=== PATIENT | male | born 1970 | race Caucasian/White ===

== ENCOUNTER 2020-02-15 09:15 | Emergency (ER) | payer BC, OTHER ==
[~2020-02-15] VITALS: Ht 177.8 cm; Wt 68.9 kg
[~2020-02-15 09:15] MED LIST: BUPR-96 PO; ESCI5TAB PO; METH4TAB21 PO
[2020-02-15] MEDS ORDERED: SULFAMETH/TRIMETH 800/160 MG TABLET PO ONE (09:30)
[2020-02-15] MEDS ORDERED: CEphaleXIN 500 MG CAPSULE PO ONE (09:30)
[2020-02-15] MEDS ORDERED: CEphaleXIN 500 MG CAPSULE ONE (09:38)
[2020-02-15] MEDS ORDERED: SULFAMETH/TRIMETH 800/160 MG TABLET ONE (09:45)
--- NOTE | 2020-02-15 11:10 | NUR ---
Patient discharged to home in stable condition. Written and verbal after care instructions given. Patient verbalizes understanding of instructions. Stressed follow up or return to ER for worsening s/s.pt walks in steady gait.
== END 2020-02-15 11:10 | disposition home or self-care (01) ==
LOC: ER 09:15
DX: L03.116 Cellulitis of left lower limb (principal); Z90.81 Acquired absence of spleen; Z86.14 Personal history of Methicillin resistant Staphylococcus aureus infection
CPT/HCPCS: A4663

== ENCOUNTER 2020-02-25 06:17 | Emergency (ER) | payer OTHER ==
[~2020-02-25] VITALS: Ht 177.8 cm; Wt 72.6 kg
--- NOTE | 2020-02-25 06:36 | NUR ---
Dr. Schmidt at bedside for MSE.
[2020-02-25] MEDS ORDERED: IBUPROFEN 600 MG TABLET PO ONE (06:45)
[2020-02-25] MEDS ORDERED: IBUPROFEN 600 MG TABLET ONE (06:46)
--- NOTE | 2020-02-25 06:49 | NUR ---
Patient discharged to home in stable condition. Written and verbal after care instructions given. Patient verbalizes understanding of instructions. Stressed follow up or return to ER for worsening s/s. Patient ambulated out of ER with steady gait, no acute signs of distress, VSS, all belongings taken.
[2020-02-25 06:50] VITALS: BP 112/77
== END 2020-02-25 06:52 | disposition home or self-care (01) ==
LOC: ER 06:18
DX: M25.462 Effusion, left knee (principal); Z90.81 Acquired absence of spleen; Z86.14 Personal history of Methicillin resistant Staphylococcus aureus infection
CPT/HCPCS: A4663

== ENCOUNTER 2020-09-01 17:49 | Emergency (ER) | payer OTHER ==
[~2020-09-01] VITALS: Ht 177.8 cm; Wt 72.6 kg
--- NOTE | 2020-09-01 18:09 | NUR ---
at bedside for assessment
[2020-09-01] MEDS ORDERED: CEPH500C2 PO (18:26)
[2020-09-01] MEDS ORDERED: LIDOCAINE HCL 2% 20 ML VIAL TP ONE (18:30)
--- NOTE | 2020-09-01 19:04 | NUR ---
right index finger dressed with xeroform and gauze
--- NOTE | 2020-09-01 19:23 | NUR ---
Patient eloped from facility. ER physician notified. Last seen 1919. Patient was awaiting xray results and discharge instructions.
== END 2020-09-01 19:26 | disposition home or self-care (01) ==
LOC: ER 17:51
DX: S61.210A Laceration without foreign body of right index finger without damage to nail, initial encounter (principal); W31.2XXA Contact with powered woodworking and forming machines, initial encounter; Y92.89 Other specified places as the place of occurrence of the external cause
CPT/HCPCS: 12002; 73140; 99283; J3490; A4217; A4663

== ENCOUNTER 2020-09-10 13:00 | Emergency (ER) | payer OTHER ==
[~2020-09-10] VITALS: Ht 177.8 cm; Wt 72.6 kg
[~2020-09-10 13:00] MED LIST changes: -BUPR-96 PO; +CEPH500C2 PO; -ESCI5TAB PO; -METH4TAB21 PO
--- NOTE | 2020-09-10 17:00 | NUR ---
cleaned wound with surgical scrub brush. Asst. STINSON w/suture removal, small patch of skin atop wound.
[2020-09-10] MEDS ORDERED: NEOMY/BACITRA/POLYMYXIN B OINT UD PACKET TP ONE (17:40)
[2020-09-10] MEDS ORDERED: AMOX-430 PO (17:40)
--- NOTE | 2020-09-10 17:47 | NUR ---
A/Bx ointment applied, finger dressed and bandaged. Pt given d/c instructions, verbalized understanding.
== END 2020-09-10 17:45 | disposition home or self-care (01) ==
LOC: ER 13:00
DX: S61.210D Laceration without foreign body of right index finger without damage to nail, subsequent encounter (principal); W31.2XXD Contact with powered woodworking and forming machines, subsequent encounter; T81.31XA Disruption of external operation (surgical) wound, not elsewhere classified, initial encounter; Z90.81 Acquired absence of spleen; Z86.14 Personal history of Methicillin resistant Staphylococcus aureus infection
CPT/HCPCS: A4663

== ENCOUNTER 2020-09-12 16:01 | Emergency (ER) | payer OTHER ==
[~2020-09-12] VITALS: Ht 177.8 cm; Wt 72.6 kg
[~2020-09-12 16:01] MED LIST changes: +AMOX-430 PO
[2020-09-12] MEDS ORDERED: NEOMY/BACITRA/POLYMYXIN B OINT UD PACKET TP ONE (16:33)
[2020-09-12] MEDS: NEOMY/BACITRA/POLYMYXIN B OINT UD PACKET TP ONE (16:36)
--- NOTE | 2020-09-12 16:36 | NUR ---
Patient was seen by . Abx ointment and clean dressing applied to finger. DC and follow up instruction given and explained to patient who states he understands all instructions
== END 2020-09-12 16:41 | disposition home or self-care (01) ==
LOC: ER 16:02
DX: S61.210D Laceration without foreign body of right index finger without damage to nail, subsequent encounter (principal); W45.8XXD Other foreign body or object entering through skin, subsequent encounter; Z86.14 Personal history of Methicillin resistant Staphylococcus aureus infection; Z90.81 Acquired absence of spleen
CPT/HCPCS: A4663

== ENCOUNTER 2022-05-17 14:30 | Emergency (ER) | payer OTHER ==
[~2022-05-17] VITALS: Ht 177.8 cm; Wt 70.3 kg
--- NOTE | 2022-05-17 14:30 | NUR ---
Pt came in with c/o laceration on the glabella, around 2cm d/t accidental bumping of his head. Denies blurry vision, headache, dizziness, n/v. Denies pain. Cleaned the wound. Seen by Dr. Pablo for MSE.
[2022-05-17] MEDS ORDERED: TDAP DIPH,PERTUSS,TET VAC/PF 0.5 ML DISP.SYRIN IM ONE ×2 (14:45→15:00)
[2022-05-17] MEDS ORDERED: NEOMY/BACITRA/POLYMYXIN B OINT UD PACKET TP ONE (14:45)
[2022-05-17] MEDS ORDERED: LIDOCAINE HCL 1% 20 ML VIAL IJ ONE (14:45)
--- NOTE | 2022-05-17 15:11 | NUR ---
Pt discharged to home in stable condition. Written and verbal after care instructions given. Pt verbalizes understanding of instructions. Stressed follow up or return to ER for worsening s/s.
== END 2022-05-17 15:05 | disposition home or self-care (01) ==
LOC: ER 14:30
DX: S01.81XA Laceration without foreign body of other part of head, initial encounter (principal); W22.09XA Striking against other stationary object, initial encounter; Y92.89 Other specified places as the place of occurrence of the external cause; D69.3 Immune thrombocytopenic purpura; Z90.81 Acquired absence of spleen; Z86.14 Personal history of Methicillin resistant Staphylococcus aureus infection; F17.200 Nicotine dependence, unspecified, uncomplicated; S09.90XA Unspecified injury of head, initial encounter
CPT/HCPCS: 90715; A4663